=== PATIENT | female | born 1970 | race Caucasian/White ===

== ENCOUNTER 2019-09-24 18:45 | Emergency (ER) | payer BC ==
--- NOTE | 2019-09-24 19:53 | EDM.PDOC ---
ED HPI GENERAL MEDICAL PROBLEM - General Chief Complaint: Lower Extremity Injury/Pain Stated Complaint: RT BIG TOE CUT Time Seen by Provider: 09/24/19 19:35 Source of Information: Reports: Patient, Family History Limitations: Reports: No Limitations - History of Present Illness INITIAL COMMENTS - FREE TEXT/NARRATIVE: 49-year-old female with a left toe injury. She was walking on rocks in the water when she slipped and jammed her left toe causing an injury to the large toenail and is developed a subungual hematoma. There is a partial evulsion of the toenail on the medial side and a subungual hematoma covering about one third of the nailbed. No other injury. No deformity or bony tenderness. 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 [Unable to Verify Home Med List] 09/24/19 [History] Past Medical History HEENT History: Reports: Impaired Vision Cardiovascular History: Reports: Cardiomyopathy Other Cardiovascular History: enlarged heart [employer] History: Reports: Neurological History: Reports: Concussion Psychiatric History: Reports: Anxiety Endocrine/Metabolic History: Reports: Hypothyroidism Dermatologic History: Reports: Eczema - Past Surgical History Female Surgical History: Reports: Section Social & Family History - Tobacco Use Smoking Status *Q: Never Smoker - Caffeine Use Caffeine Use: Reports: None - Recreational Drug Use Recreational Drug Use: No Review of Systems - Review of Systems Review Of Systems: See Below Constitutional: Denies: Fever Respiratory: Reports: No Symptoms Cardiovascular: Reports: No Symptoms Skin: Reports: Bruising (A small amount of bruising developing on the medial aspect of the nailbed left large toe) Neurological: Reports: No Symptoms ED EXAM, GENERAL - Physical Exam Exam: See Below Exam Limited By: No Limitations General Appearance: Alert, No Apparent Distress Respiratory/Chest: No Respiratory Distress Cardiovascular: Regular Rate, Rhythm Extremities: Other (Exam is otherwise limited to the left large toenail. She has a fairly significant subungual hematoma over the medial aspect of the toenail with some slight evulsion of the nail of the nailbed, the nail matrix is intact and is uninjured.) Course - Vital Signs Last Recorded V/S: Last Vital Signs Temp 97.4 F 09/24/19 19:21 Pulse 92 09/24/19 19:21 Resp 16 09/24/19 19:21 BP 124/77 09/24/19 19:21 Pulse Ox 97 09/24/19 19:21 - Re-Assessments/Exams Free Text/Narrative Re-Assessment/Exam: 09/24/19 19:51 Cautery was used to place 2 holes through the nail releasing serosanguineous material causing decreased pain. I do not think an x-ray is necessary. She is can keep the toe clean and covered while healing. Departure - Departure Time of Disposition: 20:04 Disposition: Home, Self-Care 01 Clinical Impression: Subungual hematoma of fifth toe of left foot Qualifiers: Encounter type: initial encounter Qualified Code(s): S90.222A - Contusion of left lesser toe(s) with damage to nail, initial encounter - Discharge Information Instructions: Subungual Hematoma Referrals: PCP,None [Primary Care Provider] - Forms: ED Department Discharge Care Plan Goals: Keep toe clean while healing and increase activity as tolerated. Elevate when able, Tylenol will be helpful. Return if concerns of infection or not healing satisfactorily. Sepsis Event Note (ED) - Evaluation Sepsis Screening Result: No Definite Risk - Focused Exam Vital Signs: Vital Signs Temp Pulse Resp BP Pulse Ox 09/24/19 19:21 97.4 F 92 16 124/77 97 09/24/19 19:07 97.4 F 92 16 124/77 97
== END 2019-09-24 20:12 | disposition home or self-care (01) ==
LOC: JP.ED 18:45
DX: S90.222A Contusion of left lesser toe(s) with damage to nail, initial encounter (principal); Z91.040 Latex allergy status; Z91.013 Allergy to seafood; W23.0XXA Caught, crushed, jammed, or pinched between moving objects, initial encounter; Y93.01 Activity, walking, marching and hiking
CPT/HCPCS: 11740; 99283